=== PATIENT | female | born 1960 | race Caucasian/White ===

== ENCOUNTER 2016-06-22 13:11 | Emergency (ER) | payer OTHER ==
[~2016-06-22] VITALS: Ht 152.4 cm; Wt 114.5 kg
[~2016-06-22 13:11] MED LIST: ADVAIR 250/501 DISK IH; ADVAIR 500/501 DISK IH; ALBUTEROL2.5 MG/3 M IH; ALPRAZOLAM0.25 M2 PO; AMBIEN CR12.5 MG; AMBIEN CR12.5 MG PO; ANTIVERT25 MG PO; ASACOL HD800 MG PO; AVELOX400 MG PO; AZITHROMYCIN500 M1 PO; BACTRIM,SEPT1 TABLET PO; BP; BUSPAR10 MG PO; CEFUROXIME500 MG PO; CELEBREX200 MG PO; CHOLESTYRAMINE P4 GM PO; DELZICOL400 M1 PO; DELZICOL400 MG PO; DESYREL 150 MG150 MG PO; DICYCLOMINE HCL20 MG PO; DIFLUCAN100 MG PO; ENDOCET 5-3251 EACH PO; HYDROCHLOROTH12.5 M2 PO; HYDROXYZINE PAM25 MG PO; LIALDA1.2 GM PO; LISINOPRIL-HCTZ 20-1; LISINOPRIL5 MG PO; MACROBID100 MG PO; MEDROL DOSEPAK4 MG PO; METFORMIN HCL500 M1 PO; METFORMIN HCL850 MG PO; MOTRIN600 MG PO; NAPROSYN500 MG PO; NOHOMEMEDS; NYSTOP60 GM TP; PERCOCET 5/31 TABLET PO; PREDNISONE50 MG PO; PROAIR HFA8.5 GM IH; PROPOXYPHEN-AP1 EAC2 PO; PROVENTIL,2.5 MG/3 M IH; QUETIAPINE FUM100 MG PO; RANITIDINE HCL150 MG PO; SEROQUEL100 MG PO; SEROQUEL200 MG; SEROquel PO; TRAMADOL HCL50 MG PO; TRAZODONE HCL50 MG PO; TRIAMTERENE-HC1 EACH; TRIAMTERENE-HC1 EACH PO; TYLENOL WITH C1 EACH PO; VIBRAMYCIN100 M2 GT; VIIBRYD10 MG; VIIBRYD40 MG PO; VISTARIL25 MG; WARFARIN SODIU2.5 MG PO; ZITHROMAX250 MG PO; ZOLPIDEM TART12.5 MG PO; [UNRECOGNIZED DRUG - OTHER] TP; [UNRECOGNIZED DRUG - REMARK]; oxyCODONE PO
[2016-06-22 15:06] LABS: HEMATOCRIT 43.7 % (36.0-46.0); MCH 31.3 PG (29.0-34.0); MCHC 34.6 G/DL (30.0-36.0); MCV 90.5 FL (83-99); MEAN PLAT.VOLUME 10.9 uM^3 (9.5-12.4); PLATELET COUNT 229 K/uL (156-360); RBC DIS.WIDTH-CV 12.2 % (11.8-14.6); RBC DIS.WIDTH-SD 39.7 % (39-53); RED BLOOD COUNT 4.83 M/uL (3.80-5.20); WHITE BLOOD COUNT 15.8 K/uL (4.1-10.2)
[2016-06-22 15:19] LABS: CHLORIDE 104 mEq/L (99-109); POTASSIUM 4.1 mEq/L (3.7-5.4); SODIUM 141 mEq/L (136-147)
[2016-06-22 15:21] LABS: GLUCOSE 108 mg/dL (70-99)
[2016-06-22 15:22] LABS: ANION GAP 8 MEQ/L (2-14)
[2016-06-22 15:25] LABS: GFR ESTIMATE (CALCULATED) > 59 mL/min/
[2016-06-22 15:26] LABS: UREA NITROGEN (BUN) 23 mg/dL (9-23)
[2016-06-22 15:27] LABS: INFLUENZA A VIRAL ANTIGEN NEGATIVE; INFLUENZA B VIRAL ANTIGEN NEGATIVE
[2016-06-22 16:18] LABS: INTERNAL CONTROL VALID? YES; MONOSPOT (MONONUCLEOSIS SEROL) NEGATIVE
[2016-06-22] MEDS ORDERED: MUCUS ER600 MG PO (16:30)
[2016-06-22] MEDS ORDERED: FLEXERIL10 MG PO (16:30)
[2016-06-22] MEDS ORDERED: ROBITUSSIN NIG118 ML PO (16:30)
[2016-06-22] MEDS ORDERED: TESSALON PERLE100 MG PO (16:30)
[2016-06-22] MEDS ORDERED: CIPRODEX OTIC7.5 ML LEFT EAR (16:30)
[2016-06-22] MEDS ORDERED: NAPROSYN500 MG PO (16:30)
[2016-06-22 16:42] VITALS: BP 116/71
== END 2016-06-22 16:43 | disposition home or self-care (01) ==
LOC: EME 13:11
PROVIDERS: Nurse Practitioner Family
DX: J06.9 Acute upper respiratory infection, unspecified (principal); D72.829 Elevated white blood cell count, unspecified; H60.92 Unspecified otitis externa, left ear; J02.8 Acute pharyngitis due to other specified organisms; J45.909 Unspecified asthma, uncomplicated
CPT/HCPCS: 71020; 80048; 85027; 86308; 87502; 87651 90; 99281; 99284; J1100; J1885

== ENCOUNTER 2016-07-07 14:34 | Emergency (ER) | payer OTHER ==
[~2016-07-07] VITALS: Ht 152.4 cm; Wt 115.1 kg
[~2016-07-07 14:34] MED LIST changes: +CIPRODEX OTIC7.5 ML LEFT EAR; +FLEXERIL10 MG PO; +MUCUS ER600 MG PO; +ROBITUSSIN NIG118 ML PO; +TESSALON PERLE100 MG PO
[2016-07-07] MEDS ORDERED: AMBIEN5 MG PO (15:52)
[2016-07-07] MEDS ORDERED: SEROQUEL12.5 MG PO (15:52)
[2016-07-07] MEDS ORDERED: VENTOLIN HFA18 GM IH (16:15)
[2016-07-07] MEDS ORDERED: LEVAQUIN500 MG PO (16:15)
[2016-07-07] MEDS ORDERED: TESSALON PERLE100 MG PO (16:15)
[2016-07-07] MEDS ORDERED: PREDNISONE20 MG PO (16:15)
[2016-07-07 16:26] LABS: POINT-OF-CARE METER ID UU13113800; POINT-OF-CARE USER ID STWBNM43
[2016-07-07 17:24] VITALS: BP 124/79
== END 2016-07-07 17:30 | disposition home or self-care (01) ==
LOC: EME 14:34 → RME 14:34
PROVIDERS: Physician Assistant
DX: J32.9 Chronic sinusitis, unspecified (principal); J18.0 Bronchopneumonia, unspecified organism; J45.909 Unspecified asthma, uncomplicated; E11.9 Type 2 diabetes mellitus without complications; I10 Essential (primary) hypertension; K21.9 Gastro-esophageal reflux disease without esophagitis; Z96.652 Presence of left artificial knee joint
CPT/HCPCS: 82948; 99281; 99284; J7512

== ENCOUNTER 2016-08-24 12:30 | Emergency (ER) | payer OTHER ==
[~2016-08-24] VITALS: Ht 152.4 cm; Wt 116.7 kg
[~2016-08-24 12:30] MED LIST changes: +AMBIEN5 MG PO; +LEVAQUIN500 MG PO; +PREDNISONE20 MG PO; +SEROQUEL12.5 MG PO; +VENTOLIN HFA18 GM IH
[2016-08-24] MEDS ORDERED: ZITHROMAX Z-PA250 MG PO (13:58)
[2016-08-24] MEDS ORDERED: ROBITUSSIN100 MG/5 M PO (14:20)
[2016-08-24] MEDS ORDERED: PROAIR RESPICL90 MCG IH (14:20)
[2016-08-24 14:47] VITALS: BP 110/71
== END 2016-08-24 14:48 | disposition home or self-care (01) ==
LOC: EME 12:30
DX: J06.9 Acute upper respiratory infection, unspecified (principal); J40 Bronchitis, not specified as acute or chronic; E11.9 Type 2 diabetes mellitus without complications; I10 Essential (primary) hypertension; Z88.0 Allergy status to penicillin
CPT/HCPCS: 71020; 94640; 99281; 99284; J1885

== ENCOUNTER 2016-10-16 23:09 | Emergency (ER) | payer OTHER ==
[~2016-10-16] VITALS: Ht 152.4 cm; Wt 123.3 kg
[~2016-10-16 23:09] MED LIST changes: +PROAIR RESPICL90 MCG IH; +ROBITUSSIN100 MG/5 M PO; +ZITHROMAX Z-PA250 MG PO
[2016-10-16 23:43] LABS: HEMATOCRIT 43.7 % (36.0-46.0); MCH 30.8 PG (29.0-34.0); MCV 93.4 FL (83-99); MEAN PLAT.VOLUME 10.6 uM^3 (9.5-12.4); PLATELET COUNT 215 K/uL (156-360); RBC DIS.WIDTH-CV 12.5 % (11.8-14.6); RBC DIS.WIDTH-SD 42.7 % (39-53); RED BLOOD COUNT 4.68 M/uL (3.80-5.20); WHITE BLOOD COUNT 13.1 K/uL (4.1-10.2)
[2016-10-16 23:51] LABS: CHLORIDE 108 mEq/L (99-109); POTASSIUM 4.1 mEq/L (3.7-5.4); SODIUM 140 mEq/L (136-147)
[2016-10-16 23:53] LABS: GLUCOSE 135 mg/dL (70-99)
[2016-10-16 23:54] LABS: ANION GAP 8 MEQ/L (2-14)
[2016-10-16 23:55] LABS: TOTAL BILIRUBIN 0.4 mg/dL (0.0-1.0)
[2016-10-16 23:56] LABS: ALKALINE PHOSPHATASE 107 IU/L (3-129)
[2016-10-16 23:57] LABS: GFR ESTIMATE (CALCULATED) > 59 mL/min/
[2016-10-16 23:58] LABS: UREA NITROGEN (BUN) 13 mg/dL (9-23)
[2016-10-17] LABS: LIPASE 23 U/L (1.0-51.0)
[2016-10-17 01:05] LABS: ADD MIUA? YES; BILIRUBIN NEGATIVE; BLOOD NEGATIVE; COLOR YELLOW ((YELLOW)); GLUCOSE (STRIP) NEGATIVE; KETONES NEGATIVE; LEUKOCYTES LARGE; NITRITE NEGATIVE; PROTEIN (STRIP) NEGATIVE; SPECIFIC GRAVITY 1.017 (1.000-1.030); UROBILINOGEN 0.2 MG/DL (0.2-1.0)
[2016-10-17 01:32] LABS: BACTERIA 2+ /HPF; EPITHELIAL CELLS 1+ /HPF; UCUL ADDED? YES
[2016-10-17 01:33] LABS: AMORPHOUS PHOSPHATE CRYSTALS 1+; CASTS NONE SEEN /LPF; CRYSTALS PRESENT; MUCUS NONE SEEN /LPF; RED BLOOD CELLS NONE SEEN /HPF (0-5); WHITE BLOOD CELLS 15-20 /HPF (0-5)
[2016-10-17] MEDS ORDERED: MEDROL DOSEPAK4 MG PO (01:33)
[2016-10-17] MEDS ORDERED: ZITHROMAX Z-PA250 MG PO (01:33)
[2016-10-17 02:29] VITALS: BP 163/86
== END 2016-10-17 02:29 | disposition home or self-care (01) ==
LOC: EME 23:09 → EXP 23:09
DX: J18.9 Pneumonia, unspecified organism (principal); R10.84 Generalized abdominal pain; N39.0 Urinary tract infection, site not specified; J45.909 Unspecified asthma, uncomplicated; I10 Essential (primary) hypertension; E11.9 Type 2 diabetes mellitus without complications; K21.9 Gastro-esophageal reflux disease without esophagitis; F32.9 Major depressive disorder, single episode, unspecified; K50.90 Crohn's disease, unspecified, without complications
CPT/HCPCS: 71020; 74177; 80053; 81003; 83690; 85027; 87086; 94640; 94640 76; 99281; 99285; J0696; J2270; J2405; J7030; J7050; J7512

== ENCOUNTER 2016-12-20 19:34 | Emergency (ER) | payer OTHER ==
[~2016-12-20] VITALS: Ht 152.4 cm; Wt 124.6 kg
[2016-12-20] MEDS ORDERED: ULTRAM50 MG PO (20:13)
[2016-12-20] MEDS ORDERED: SILVADENE20 GM TP (20:13)
[2016-12-20 20:42] VITALS: BP 132/64
== END 2016-12-20 20:44 | disposition home or self-care (01) ==
LOC: EME 19:34
DX: T55.1X1A Toxic effect of detergents, accidental (unintentional), initial encounter (principal); T21.51XA Corrosion of first degree of chest wall, initial encounter; K21.9 Gastro-esophageal reflux disease without esophagitis; I10 Essential (primary) hypertension; E11.9 Type 2 diabetes mellitus without complications; F32.9 Major depressive disorder, single episode, unspecified; J45.909 Unspecified asthma, uncomplicated; G43.909 Migraine, unspecified, not intractable, without status migrainosus; Z88.0 Allergy status to penicillin
CPT/HCPCS: 99281; 99284

== ENCOUNTER 2017-04-16 06:06 | Emergency (ER) | payer OTHER ==
[~2017-04-16] VITALS: Ht 152.4 cm; Wt 109.0 kg
[~2017-04-16 06:06] MED LIST changes: +DIFLUCAN150 MG PO; +NORCO 5/3251 TABLET PO; +NYAMYC60 GM TP; +SILVADENE20 GM TP; +ULTRAM50 MG PO
[2017-04-16 06:55] LABS: HEMATOCRIT 47.2 % (36.0-46.0); MCH 31.6 PG (29.0-34.0); MCHC 34.1 G/DL (30.0-36.0); MCV 92.7 FL (83-99); MEAN PLAT.VOLUME 10.7 uM^3 (9.5-12.4); PLATELET COUNT 275 K/uL (156-360); RBC DIS.WIDTH-CV 12.6 % (11.8-14.6); RBC DIS.WIDTH-SD 42.7 % (39-53); RED BLOOD COUNT 5.09 M/uL (3.80-5.20)
[2017-04-16 07:11] LABS: CHLORIDE 102 mEq/L (99-109); POTASSIUM 3.6 mEq/L (3.7-5.4); SODIUM 140 mEq/L (136-147)
[2017-04-16 07:13] LABS: GLUCOSE 117 mg/dL (70-99)
[2017-04-16 07:14] LABS: ANION GAP 12 MEQ/L (2-14)
[2017-04-16 07:15] LABS: TOTAL BILIRUBIN 1.1 mg/dL (0.0-1.0)
[2017-04-16 07:17] LABS: ALKALINE PHOSPHATASE 118 IU/L (3-129); GFR ESTIMATE (CALCULATED) > 59 mL/min/
[2017-04-16 07:18] LABS: UREA NITROGEN (BUN) 14 mg/dL (9-23)
[2017-04-16 07:20] LABS: LIPASE 9 U/L (1.0-51.0)
[2017-04-16 07:57] LABS: DIRECT BILIRUBIN 0.5 mg/dL (0.0-0.3)
[2017-04-16 09:14] LABS: ADD MIUA? YES; BILIRUBIN MODERATE; BLOOD NEGATIVE; COLOR AMBER ((YELLOW)); GLUCOSE (STRIP) NEGATIVE; KETONES 5; LEUKOCYTES MODERATE; NITRITE NEGATIVE; PROTEIN (STRIP) 100; SPECIFIC GRAVITY 1.039 (1.000-1.030)
[2017-04-16 09:21] LABS: BACTERIA 2+ /HPF; CASTS NONE SEEN /LPF; CRYSTALS NONE SEEN; EPITHELIAL CELLS 1+ /HPF; MUCUS NONE SEEN /LPF; RED BLOOD CELLS NONE SEEN /HPF (0-5); WHITE BLOOD CELLS TNTC /HPF (0-5)
[2017-04-16 09:44] LABS: ICTOTEST NEGATIVE
[2017-04-16] MEDS ORDERED: DIFLUCAN150 MG PO (10:30)
[2017-04-16] MEDS ORDERED: TESSALON PERLE100 MG PO (10:30)
[2017-04-16] MEDS ORDERED: ZOFRAN ODT4 MG PO (10:30)
[2017-04-16] MEDS ORDERED: BACTRIM,SEPT1 TABLET PO (10:30)
[2017-04-16 10:50] VITALS: BP 136/74
== END 2017-04-16 10:50 | disposition home or self-care (01) ==
LOC: EME → EDBD 06:06 → EME 06:06
PROVIDERS: Nurse Practitioner Family
DX: J06.9 Acute upper respiratory infection, unspecified (principal); N39.0 Urinary tract infection, site not specified; B36.9 Superficial mycosis, unspecified; R11.10 Vomiting, unspecified; K50.90 Crohn's disease, unspecified, without complications; K21.9 Gastro-esophageal reflux disease without esophagitis; J45.909 Unspecified asthma, uncomplicated; I10 Essential (primary) hypertension; F41.9 Anxiety disorder, unspecified; F32.9 Major depressive disorder, single episode, unspecified; E11.9 Type 2 diabetes mellitus without complications; Z88.0 Allergy status to penicillin
CPT/HCPCS: 71020; 80053; 81003; 82248; 83690; 85027; 94640; 99281; 99284; J1885

== ENCOUNTER 2017-06-28 20:22 | Emergency (ER) | payer OTHER ==
[~2017-06-28] VITALS: Ht 152.4 cm; Wt 108.4 kg
[~2017-06-28 20:22] MED LIST changes: +ZOFRAN ODT4 MG PO
[2017-06-28 21:01] LABS: HEMOGLOBIN 14.1 G/DL (11.9-15.5); MCH 31.8 PG (29.0-34.0); MCHC 34.4 G/DL (30.0-36.0); MCV 92.3 FL (83-99); PLATELET COUNT 246 K/uL (156-360); RBC DIS.WIDTH-CV 12.5 % (11.8-14.6); RBC DIS.WIDTH-SD 42.3 % (39-53); RED BLOOD COUNT 4.44 M/uL (3.80-5.20); WHITE BLOOD COUNT 7.4 K/uL (4.1-10.2)
[2017-06-28 21:10] LABS: CHLORIDE 108 mEq/L (99-109); POTASSIUM 3.7 mEq/L (3.7-5.4); SODIUM 142 mEq/L (136-147)
[2017-06-28 21:12] LABS: GLUCOSE 131 mg/dL (70-99)
[2017-06-28] MEDS ORDERED: PREDNISONE10 M1 PO (21:12)
[2017-06-28] MEDS ORDERED: CHERATUSSIN AC473 ML PO (21:14)
[2017-06-28 21:16] LABS: CREATININE 0.7 mg/dL (0.6-1.3); GFR ESTIMATE (CALCULATED) > 59 mL/min/
[2017-06-28 21:17] LABS: UREA NITROGEN (BUN) 13 mg/dL (9-23)
[2017-06-28 22:35] VITALS: BP 169/79
== END 2017-06-28 22:35 | disposition home or self-care (01) ==
LOC: RME 20:22 → EME 20:22 → RME 22:35
DX: J06.9 Acute upper respiratory infection, unspecified (principal); J45.909 Unspecified asthma, uncomplicated
CPT/HCPCS: 71046; 80048; 85027; 99281; 99284; J7512

== ENCOUNTER 2017-07-10 18:59 | Emergency (ER) | payer OTHER ==
[~2017-07-10] VITALS: Ht 152.4 cm; Wt 104.8 kg
[~2017-07-10 18:59] MED LIST changes: +CHERATUSSIN AC473 ML PO; +PREDNISONE10 M1 PO
[2017-07-10 23:27] LABS: HEMATOCRIT 42.8 % (36.0-46.0); HEMOGLOBIN 14.8 G/DL (11.9-15.5); MCH 32.1 PG (29.0-34.0); MCHC 34.6 G/DL (30.0-36.0); MCV 92.8 FL (83-99); PLATELET COUNT 226 K/uL (156-360); RBC DIS.WIDTH-CV 12.7 % (11.8-14.6); RBC DIS.WIDTH-SD 43.4 % (39-53); RED BLOOD COUNT 4.61 M/uL (3.80-5.20); WHITE BLOOD COUNT 9.7 K/uL (4.1-10.2)
[2017-07-10 23:36] LABS: ALBUMIN 3.7 g/dL (3.2-4.8); CHLORIDE 107 mEq/L (99-109); POTASSIUM 3.2 mEq/L (3.7-5.4); SODIUM 141 mEq/L (136-147)
[2017-07-10 23:39] LABS: GLUCOSE 122 mg/dL (70-99); TOTAL PROTEIN 5.7 g/dL (6.4-8.3)
[2017-07-10 23:41] LABS: TOTAL BILIRUBIN 0.7 mg/dL (0.0-1.0)
[2017-07-10 23:42] LABS: ALKALINE PHOSPHATASE 116 IU/L (3-129); CREATININE 0.8 mg/dL (0.6-1.3); GFR ESTIMATE (CALCULATED) > 59 mL/min/
[2017-07-10 23:43] LABS: UREA NITROGEN (BUN) 16 mg/dL (9-23)
[2017-07-10 23:44] LABS: AST (GOT) 11 IU/L (2-34)
[2017-07-10 23:45] LABS: ALT (GPT) 15 IU/L (3-49)
[2017-07-11] MEDS ORDERED: ZITHROMAX Z-PA250 MG PO (01:38)
[2017-07-11] MEDS ORDERED: VALTREX1000 MG PO (01:38)
[2017-07-11 02:23] VITALS: BP 149/81
== END 2017-07-11 02:26 | disposition home or self-care (01) ==
LOC: EME 18:59 → RME 18:59
PROVIDERS: Physician Assistant
DX: J20.9 Acute bronchitis, unspecified (principal); B02.9 Zoster without complications; E87.6 Hypokalemia; E11.9 Type 2 diabetes mellitus without complications; I10 Essential (primary) hypertension; J45.909 Unspecified asthma, uncomplicated; F32.9 Major depressive disorder, single episode, unspecified; K50.90 Crohn's disease, unspecified, without complications; K21.9 Gastro-esophageal reflux disease without esophagitis; F41.9 Anxiety disorder, unspecified; Z88.0 Allergy status to penicillin
CPT/HCPCS: 71046; 80053; 85027; 85379; 87502; 93005; 94640; 99281; 99285; J1200; J1885; J2405; J2930; J7030

== ENCOUNTER 2017-07-28 09:38 | Emergency (ER) | payer OTHER ==
[~2017-07-28] VITALS: Ht 152.4 cm; Wt 97.8 kg
[~2017-07-28 09:38] MED LIST changes: +VALTREX1000 MG PO
[2017-07-28 10:32] LABS: BASOPHIL (%) 0.4 % (0-1); BASOPHIL COUNT 0.1 K/uL (0-0.1); EOSINOPHIL (%) 0.1 % (0-5); HEMATOCRIT 44.1 % (36.0-46.0); HEMOGLOBIN 15.7 G/DL (11.9-15.5); IMMATURE GRANULOCYTE (%) 0.4 % (0.0-0.7); LYMPHOCYTE (%) 13.8 % (15-42); LYMPHOCYTE COUNT 1.6 K/uL (1.0-2.8); MCH 32.4 PG (29.0-34.0); MCHC 35.6 G/DL (30.0-36.0); MCV 90.9 FL (83-99); MONOCYTE (%) 6.2 % (3-12); MONOCYTE COUNT 0.7 K/uL (0-0.8); NEUTROPHIL (%) 79.1 % (45-76); NEUTROPHIL COUNT 8.9 K/uL (1.8-6.4); PLATELET COUNT 269 K/uL (156-360); RBC DIS.WIDTH-CV 13.3 % (11.8-14.6); RBC DIS.WIDTH-SD 43.3 % (39-53); RED BLOOD COUNT 4.85 M/uL (3.80-5.20); WHITE BLOOD COUNT 11.2 K/uL (4.1-10.2)
[2017-07-28 11:04] LABS: CHLORIDE 98 MEQ/L (99-109); CREATININE 1.2 MG/DL (0.6-1.3); GFR ESTIMATE (CALCULATED) 49 mL/min/; GLUCOSE 115 mg/dL (70-99); POTASSIUM 2.7 MEQ/L (3.7-5.4); SODIUM 139 MEQ/L (136-147); UREA NITROGEN (BUN) 19 mg/dL (9-23)
[2017-07-28 11:32] LABS: SERUM ETHYL ALCOHOL < 10 mg/dL
[2017-07-28 14:11] LABS: CHLORIDE 97 mEq/L (99-109); POTASSIUM 2.9 mEq/L (3.7-5.4); SODIUM 136 mEq/L (136-147)
[2017-07-28 14:13] LABS: GLUCOSE 97 mg/dL (70-99)
[2017-07-28 14:17] LABS: CREATININE 1.2 mg/dL (0.6-1.3); GFR ESTIMATE (CALCULATED) 49 mL/min/
[2017-07-28 14:18] LABS: UREA NITROGEN (BUN) 19 mg/dL (9-23)
[2017-07-28] MEDS ORDERED: IMODIUM A-D2 M2 PO (15:30)
[2017-07-28] MEDS ORDERED: K-DUR20 MEQ PO (15:30)
[2017-07-28 15:33] LABS: AMPHETAMINE NEGATIVE (500 ng/mL); BARBITURATES NEGATIVE (200 ng/mL); BENZODIAZEPINES NEGATIVE (150 ng/mL); COCAINE PRESUMPTIVE POSITIVE (150 ng/mL); METHADONE NEGATIVE (200 ng/mL); METHAMPHETAMINE NEGATIVE (500 ng/mL); OPIATES (MORPHINE) NEGATIVE (100 ng/mL); PHENCYCLIDINE NEGATIVE (25 ng/mL); THC CANNABINOIDS NEGATIVE (50 ng/mL); TRICYCLIC ANTIDEPRESSANTS PRESUMPTIVE POSITIVE (300 ng/mL)
[2017-07-28 15:34] LABS: BUPRENORPHINE NEGATIVE (10 ng/mL); OXYCODONE PRESUMPTIVE POSITIVE (100 ng/mL); PROPOXYPHENE NEGATIVE (300 ng/mL)
[2017-07-28 16:22] VITALS: BP 120/90
== END 2017-07-28 16:24 | disposition home or self-care (01) ==
LOC: EME 09:38
PROVIDERS: Emergency Medicine
DX: R19.7 Diarrhea, unspecified (principal); E87.6 Hypokalemia; R42 Dizziness and giddiness; R51 Headache; T71.9XXA Asphyxiation due to unspecified cause, initial encounter; Y04.0XXA Assault by unarmed brawl or fight, initial encounter; M25.552 Pain in left hip; J44.9 Chronic obstructive pulmonary disease, unspecified; Z88.0 Allergy status to penicillin
CPT/HCPCS: 70450; 70498; 73502; 80048; 80048 91; 81003; 84999; 85025; 99281; 99285; G0480

== ENCOUNTER 2017-09-08 11:48 | Emergency (ER) | payer OTHER ==
[~2017-09-08] VITALS: Ht 152.4 cm; Wt 107.5 kg
[~2017-09-08 11:48] MED LIST changes: +IMODIUM A-D2 M2 PO; +K-DUR20 MEQ PO
[2017-09-08] MEDS ORDERED: LEVAQUIN500 MG PO (13:23)
[2017-09-08] MEDS ORDERED: PROAIR HFA8.5 GM IH (13:23)
[2017-09-08 14:30] VITALS: BP 142/74
[2017-09-08] MEDS ORDERED: TESSALON PERLE100 MG PO (14:41)
== END 2017-09-08 14:59 | disposition home or self-care (01) ==
LOC: EME 11:48
DX: H60.90 Unspecified otitis externa, unspecified ear (principal); J40 Bronchitis, not specified as acute or chronic; J45.909 Unspecified asthma, uncomplicated; Z96.659 Presence of unspecified artificial knee joint; Z88.0 Allergy status to penicillin; Z88.1 Allergy status to other antibiotic agents
CPT/HCPCS: 99281; 99284

== ENCOUNTER 2017-09-22 11:39 | Emergency (ER) | payer OTHER ==
[~2017-09-22] VITALS: Ht 152.4 cm; Wt 105.6 kg
[2017-09-22 15:29] LABS: BASOPHIL COUNT 0.1 K/uL (0-0.1); EOSINOPHIL (%) 5.5 % (0-5); EOSINOPHIL COUNT 0.7 K/uL (0-0.3); HEMATOCRIT 40.7 % (36.0-46.0); HEMOGLOBIN 14.4 G/DL (11.9-15.5); IMMATURE GRANULOCYTE (%) 0.2 % (0.0-0.7); LYMPHOCYTE (%) 21.8 % (15-42); LYMPHOCYTE COUNT 2.7 K/uL (1.0-2.8); MCH 33.4 PG (29.0-34.0); MCHC 35.4 G/DL (30.0-36.0); MCV 94.4 FL (83-99); NEUTROPHIL (%) 63.5 % (45-76); NEUTROPHIL COUNT 7.7 K/uL (1.8-6.4); PLATELET COUNT 256 K/uL (156-360); RBC DIS.WIDTH-CV 12.5 % (11.8-14.6); RBC DIS.WIDTH-SD 43.4 % (39-53); RED BLOOD COUNT 4.31 M/uL (3.80-5.20); WHITE BLOOD COUNT 12.2 K/uL (4.1-10.2)
[2017-09-22 15:31] LABS: ALBUMIN 3.8 g/dL (3.2-4.8); CHLORIDE 104 mEq/L (99-109); SODIUM 141 mEq/L (136-147)
[2017-09-22 15:33] LABS: GLUCOSE 116 mg/dL (70-99); TOTAL PROTEIN 6.1 g/dL (6.4-8.3)
[2017-09-22 15:35] LABS: TOTAL BILIRUBIN 0.4 mg/dL (0.0-1.0)
[2017-09-22 15:37] LABS: ALKALINE PHOSPHATASE 116 IU/L (3-129); CREATININE 0.7 mg/dL (0.6-1.3); GFR ESTIMATE (CALCULATED) > 59 mL/min/
[2017-09-22 15:38] LABS: UREA NITROGEN (BUN) 17 mg/dL (9-23)
[2017-09-22 15:39] LABS: AST (GOT) 13 IU/L (2-34)
[2017-09-22 15:40] LABS: ALT (GPT) 16 IU/L (3-49)
[2017-09-22 16:45] LABS: ERTH.SED.RATE 7 MM/HR (0-30)
[2017-09-22] MEDS ORDERED: PREDNISONE20 MG PO (17:14)
[2017-09-22] MEDS ORDERED: PERCOCET 5/31 TABLET PO (17:14)
[2017-09-22 17:24] VITALS: BP 142/70
== END 2017-09-22 17:24 | disposition home or self-care (01) ==
LOC: EME 11:39
PROVIDERS: Emergency Medicine
DX: B34.9 Viral infection, unspecified (principal); M06.9 Rheumatoid arthritis, unspecified; E11.9 Type 2 diabetes mellitus without complications; I10 Essential (primary) hypertension; J45.909 Unspecified asthma, uncomplicated; F32.9 Major depressive disorder, single episode, unspecified; F41.9 Anxiety disorder, unspecified; K21.9 Gastro-esophageal reflux disease without esophagitis; Z96.659 Presence of unspecified artificial knee joint; Z88.0 Allergy status to penicillin
CPT/HCPCS: 71046; 80053; 81003; 85025; 85651; 87502; 99281; 99284; J7512

== ENCOUNTER 2017-11-07 10:53 | Emergency (ER) | payer OTHER ==
[~2017-11-07] VITALS: Ht 152.4 cm; Wt 112.2 kg
[2017-11-07 13:02] LABS: HEMATOCRIT 38.6 % (36.0-46.0); HEMOGLOBIN 13.3 G/DL (11.9-15.5); MCH 32.4 PG (29.0-34.0); MCHC 34.5 G/DL (30.0-36.0); MCV 94.1 FL (83-99); PLATELET COUNT 57 K/uL (156-360); RBC DIS.WIDTH-CV 11.8 % (11.8-14.6); RBC DIS.WIDTH-SD 40.8 % (39-53); WHITE BLOOD COUNT 7.2 K/uL (4.1-10.2)
[2017-11-07 13:10] LABS: CHLORIDE 104 mEq/L (99-109); SODIUM 138 mEq/L (136-147)
[2017-11-07 13:12] LABS: GLUCOSE 104 mg/dL (70-99)
[2017-11-07 13:16] LABS: CREATININE 0.7 mg/dL (0.6-1.3); GFR ESTIMATE (CALCULATED) > 59 mL/min/
[2017-11-07 13:17] LABS: UREA NITROGEN (BUN) 12 mg/dL (9-23)
[2017-11-07 13:32] LABS: ALBUMIN 3.5 g/dL (3.2-4.8)
[2017-11-07 13:35] LABS: TOTAL PROTEIN 5.8 g/dL (6.4-8.3)
[2017-11-07 13:36] LABS: TOTAL BILIRUBIN 0.4 mg/dL (0.0-1.0)
[2017-11-07 13:37] LABS: ALKALINE PHOSPHATASE 116 IU/L (3-129)
[2017-11-07 13:40] LABS: AST (GOT) 11 IU/L (2-34); DIRECT BILIRUBIN 0.2 mg/dL (0.0-0.3)
[2017-11-07 13:41] LABS: ALT (GPT) 15 IU/L (3-49)
[2017-11-07] MEDS ORDERED: ELIMITE 5% CREA60 GM TP (14:41)
[2017-11-07] MEDS ORDERED: ANTIVERT25 MG PO (14:41)
[2017-11-07 14:50] VITALS: BP 134/81
== END 2017-11-07 14:58 | disposition home or self-care (01) ==
LOC: EDBD 10:53 → EME 10:53
PROVIDERS: Physician Assistant Medical
DX: R42 Dizziness and giddiness (principal); I10 Essential (primary) hypertension; E11.9 Type 2 diabetes mellitus without complications; K21.9 Gastro-esophageal reflux disease without esophagitis; F41.9 Anxiety disorder, unspecified; F32.9 Major depressive disorder, single episode, unspecified; J45.909 Unspecified asthma, uncomplicated; Z79.51 Long term (current) use of inhaled steroids; G43.909 Migraine, unspecified, not intractable, without status migrainosus; Z87.19 Personal history of other diseases of the digestive system; Z87.42 Personal history of other diseases of the female genital tract; Z96.659 Presence of unspecified artificial knee joint; Z90.49 Acquired absence of other specified parts of digestive tract; Z88.0 Allergy status to penicillin; Z88.1 Allergy status to other antibiotic agents
CPT/HCPCS: 80048; 80076; 85027; 93005; 99281; 99285; J0780; J1200; J7030

== ENCOUNTER 2018-01-05 07:31 | Emergency (ER) | payer OTHER ==
[~2018-01-05] VITALS: Ht 152.4 cm; Wt 122.0 kg
[~2018-01-05 07:31] MED LIST changes: +ELIMITE 5% CREA60 GM TP
[2018-01-05] MEDS ORDERED: PERCOCET 5/31 TABLET PO (09:15)
[2018-01-05] MEDS ORDERED: NAPROSYN500 MG PO (09:15)
[2018-01-05 09:42] VITALS: BP 118/60
== END 2018-01-05 09:47 | disposition home or self-care (01) ==
LOC: EME 07:31
PROC: 2W3QX1Z Immobilization of Right Lower Leg using Splint (ICD-10-PCS; principal; 2018-01-05)
DX: S92.211A Displaced fracture of cuboid bone of right foot, initial encounter for closed fracture (principal); S93.401A Sprain of unspecified ligament of right ankle, initial encounter; W10.9XXA Fall (on) (from) unspecified stairs and steps, initial encounter; Y93.89 Activity, other specified; I10 Essential (primary) hypertension; Z88.0 Allergy status to penicillin; Z88.1 Allergy status to other antibiotic agents
CPT/HCPCS: 73610; 73630; 99281; 99284